=== PATIENT | male | born 1970 | race Hispanic/Latino ===

== ENCOUNTER 2019-06-13 20:38 | Inpatient (IN) | payer SELFPAY ==
[~2019-06-13] VITALS: Ht 160 cm; Wt 99.6 kg
[2019-06-13] MEDS ORDERED: ZOSYN 3.375GM+NS 50ML 50 ML IV ONE (21:33)
[2019-06-13 21:42] LABS: BASOPHILS % (AUTO) 0.8 % (0.0-5.0); EOSINOPHILS % (AUTO) 1.2 % (0.0-8.0); HEMATOCRIT 45.3 % (42-54); LYMPHOCYTES % (AUTO) 21.9 % (21.0-51.0); MEAN CORPUSCULAR HEMOGLOBIN 30.9 pg (27.0-33.0); MEAN CORPUSCULAR HGB CONC 34.8 g/dL (32.0-36.0); MEAN CORPUSCULAR VOLUME 88.6 fL (79-99); MONOCYTES % (AUTO) 7.9 % (3.0-13.0); NEUTROPHILS % (AUTO) 68.2 % (40.0-77.0); PLATELET COUNT (AUTO) 273 K/uL (130-400); RED BLOOD CELL COUNT(AUTO) 5.12 MIL/uL (4.50-6.20); RED CELL DISTRIBUTION WIDTH 12.5 % (11.0-15.5); WHITE BLOOD COUNT (AUTO) 15.1 K/uL (4.8-10.8)
[2019-06-13 21:52] LABS: APPEARANCE,URINE Clear (CLEAR); BILIRUBIN,URINE Negative (NEGATIVE); COLOR,URINE Yellow (YELLOW); GLUCOSE, URINE (UA) >=1000 mg/dL (NEGATIVE); KETONES,URINE Trace mg/dL (NEGATIVE); LEUKOCYTE ESTERASE ,URINE Negative (NEGATIVE); NITRATE,URINE Negative (NEGATIVE); OCCULT BLOOD,URINE Negative (NEGATIVE); PROTEIN,URINE Negative (NEGATIVE)
[2019-06-13 21:55] LABS: CREATININE 1.1 mg/dL (0.5-1.5)
[2019-06-13 21:59] LABS: ALBUMIN 4.3 g/dL (3.5-5.0); BILIRUBIN,TOTAL 0.7 mg/dL (0.2-1.0); TOTAL PROTEIN, SERUM 8.7 g/dL (6.0-8.3)
[2019-06-14] VITALS (7 sets, daily range): BP systolic 103–128; BP diastolic 54–89
[2019-06-14] MEDS ORDERED: ACETAMINOPHEN 325 MG TAB PO PRN ×2 (00:15)
[2019-06-14] MEDS ORDERED: ACETAMINOPHEN 325 MG TAB ONE (01:40)
[2019-06-14] MEDS ORDERED: METF-444 PO (03:25)
[2019-06-14] MEDS ORDERED: LISI-613 PO (03:26)
[2019-06-14 04:39] LABS: EOSINOPHILS % (AUTO) 1.7 % (0.0-8.0); HEMATOCRIT 39.6 % (42-54); LYMPHOCYTES % (AUTO) 26.3 % (21.0-51.0); MEAN CORPUSCULAR HEMOGLOBIN 30.3 pg (27.0-33.0); MEAN CORPUSCULAR HGB CONC 34.6 g/dL (32.0-36.0); MEAN CORPUSCULAR VOLUME 87.6 fL (79-99); MONOCYTES % (AUTO) 6.8 % (3.0-13.0); NEUTROPHILS % (AUTO) 64.2 % (40.0-77.0); PLATELET COUNT (AUTO) 231 K/uL (130-400); RED BLOOD CELL COUNT(AUTO) 4.53 MIL/uL (4.50-6.20); RED CELL DISTRIBUTION WIDTH 12.6 % (11.0-15.5); WHITE BLOOD COUNT (AUTO) 12.3 K/uL (4.8-10.8)
[2019-06-14 04:51] LABS: ALBUMIN 3.5 g/dL (3.5-5.0); BILIRUBIN,TOTAL 0.6 mg/dL (0.2-1.0); CREATININE 0.9 mg/dL (0.5-1.5); POTASSIUM 3.5 mmol/L (3.5-5.1); TOTAL PROTEIN, SERUM 7.1 g/dL (6.0-8.3)
[2019-06-14] MEDS ORDERED: ZOSYN 3.375GM+NS 50ML 50 ML IV ONE (04:54)
[2019-06-14] MEDS: INSULIN HUMULIN R 100 UNIT/ML 3ML SQ SCH ×4 (07:58→20:48)
[2019-06-14] MEDS: FAMOTIDINE 20MG TAB 20 MG TAB PO SCH ×2 (09:07→20:54)
[2019-06-14] MEDS: ENOXAPARIN SODIUM 30 MG/0.3 ML SQ SCH (09:15)
--- NOTE | 2019-06-14 10:05 | NUR ---
INITIAL MET W PT AND SPOUSE DEWAYNE WHO WILL PROVIDE TRANSPORT HOME PT IS [employer], [employer], [employer], EMPLOYED FT, NO INSURANCE AVAILABLE THROUGH HIS EMPLOYMENT RECENTLY STARTED GOING TO [facility] HAS GLUCOMETER, CHECKS SUGARS, PLAN IS HOME, WILL PROVIDE COMMUNITY RESOURCE PKT AND INFO ON DIABETIC SELF MANANGEMENT CLINIC ASKED RN FOR HGB [facility] LAB, WILL OBTAIN ORDER Addendum: 06/14/19 at 1453 by CHRISTINE VALERO RN CM Amended: Links added.
[2019-06-14 11:07] LABS: HEMOGLOBIN A1C 10.9 % (4.0-6.0)
--- NOTE | 2019-06-14 11:10 | NUR ---
Dr. Vega paged and made aware of consultMD pending to see pt.
[2019-06-14] MEDS: TRAMADOL HCL 50 MG TABLET PO PRN ×2 (12:43→20:56)
[2019-06-14] MEDS: ZOSYN 3.375GM+NS 50ML 50 ML IV SCH ×2 (12:43→20:54)
[2019-06-14] MEDS ORDERED: LIDOCAINE 1%-EPI 1:100,000 20 ML VIAL IJ ONE (14:55)
[2019-06-15 03:40] VITALS: BP 134/88
[2019-06-15] MEDS: ZOSYN 3.375GM+NS 50ML 50 ML IV SCH ×3 (05:34→21:08)
[2019-06-15] MEDS: INSULIN HUMULIN R 100 UNIT/ML 3ML SQ SCH ×3 (05:34→21:10)
[2019-06-15] MEDS: TRAMADOL HCL 50 MG TABLET PO PRN ×3 (05:44→23:35)
[2019-06-15 08:05] VITALS: BP 137/88
[2019-06-15] MEDS: FAMOTIDINE 20MG TAB 20 MG TAB PO SCH ×2 (09:17→21:09)
[2019-06-15] MEDS: ENOXAPARIN SODIUM 30 MG/0.3 ML SQ SCH (09:19)
[2019-06-15 11:46] VITALS: BP 127/81
--- NOTE | 2019-06-15 12:49 | NUR ---
Wound Dressing Care Wound dressing done, tolerated well by pt, No complication noted, Pt premedicated prior to wound dressing. Nursing will continue to monitor.
[2019-06-15 15:59] VITALS: BP 113/75
[2019-06-15 20:00] VITALS: BP 133/88
[2019-06-16] VITALS: BP 108/57
[2019-06-16 04:00] VITALS: BP 117/62
[2019-06-16] MEDS: ZOSYN 3.375GM+NS 50ML 50 ML IV SCH (05:04)
[2019-06-16] MEDS: INSULIN HUMULIN R 100 UNIT/ML 3ML SQ SCH ×2 (06:44→13:01)
[2019-06-16] MEDS: TRAMADOL HCL 50 MG TABLET PO PRN (06:55)
[2019-06-16 08:00] VITALS: BP 138/84
[2019-06-16] MEDS: FAMOTIDINE 20MG TAB 20 MG TAB PO SCH (08:30)
[2019-06-16] MEDS: ENOXAPARIN SODIUM 30 MG/0.3 ML SQ SCH (08:31)
[2019-06-16] MEDS ORDERED: CEPH500B PO (10:40)
[2019-06-16 11:51] VITALS: BP 130/78
--- NOTE | 2019-06-16 14:38 | NUR ---
PT D/C HOME Pt d/c home safely, d/c instruction provided, wound dressing teaching provided to spouse with teach back, PIV d/c without complication, pt to follow up with Dr. Vega for wound care, pt self referral and provided a list of PCPs, pt verbalized understanding of d/c instructions, Podiatry follow up appointment made for pt, all questions and concerns addressed. Pt taken down in w/c by DENTAL [employer]ER.
== END 2019-06-16 13:53 | disposition home or self-care (01) | DRG 988 ==
LOC: EDH 20:38 → EDHIP 20:39 → OBSVTOIN 20:39 → 3DH 06-14 00:36
PROVIDERS: ADMIT Internal Medicine; ATTEND Internal Medicine
PROC: 0S9N0ZZ Drainage of Left Metatarsal-Phalangeal Joint, Open Approach (ICD-10-PCS; principal; 2019-06-14)
DX: E11.628 Type 2 diabetes mellitus with other skin complications (principal); L02.612 Cutaneous abscess of left foot; L03.116 Cellulitis of left lower limb; Z68.38 Body mass index [BMI] 38.0-38.9, adult; E66.9 Obesity, unspecified; E11.65 Type 2 diabetes mellitus with hyperglycemia; F17.210 Nicotine dependence, cigarettes, uncomplicated; I10 Essential (primary) hypertension; B95.61 Methicillin susceptible Staphylococcus aureus infection as the cause of diseases classified elsewhere; W57.XXXA Bitten or stung by nonvenomous insect and other nonvenomous arthropods, initial encounter; Y93.89 Activity, other specified; Y92.89 Other specified places as the place of occurrence of the external cause; Y99.8 Other external cause status
CPT/HCPCS: 36415; 71045; 73630; 80053; 81003; 82948; 83036; 85025; 87040; 87070; 87076; 87077; 87186; 93970; A6266; G0378; J1650; J1815; J2543; J3490